=== PATIENT | male | born 1940 | race Caucasian/White ===

== ENCOUNTER 2019-12-25 10:46 | Inpatient (IN) ==
--- NOTE | 2019-12-25 11:54 | Diag Imaging Result Doc PS360 ---
EXAM: CHEST-1 VIEW 12/25/2019 HISTORY: ANEMIA TECHNIQUE: AP portable semiupright at 1136 COMMENT: There is dextrocardia as on previous studies. Considering differences in technique the appearance of the chest has not changed significantly since the previous study of 12/19/2019. IMPRESSION: Stable chest. Electronically signed by Priyank Abbott 12/25/2019 11:52 AM
--- NOTE | 2019-12-25 11:55 | EKG Report ---
Test Performed on : 12/25/2019 11:38:00 AM Test Reason : ANEMIA Blood Pressure : / mmHG Vent. Rate : 069 BPM Atrial Rate : 069 BPM P-R Int : 198 ms QRS Dur : 098 ms QT Int : 394 ms P-R-T Axes : 000 201 185 degrees QTc Int : 422 ms Normal sinus rhythm. Septal infarct , age undetermined Possible Lateral infarct , age undetermined ST & T wave abnormality, consider inferior ischemia ST & T wave abnormality, consider anterior ischemia Abnormal ECG When compared with ECG of 01-MAR-2011 16:15, Significant changes have occurred Patient states he has dextrocardia. KJ WEB SITE SPECIALIST Confirmed by Allen ADLER, Kaveh Hawthorne ([id number]) on 12/25/2019 6:03:07 PM
[2019-12-25] MEDS ORDERED: SODIUM CHLORIDE 0.9% INJ SCH (12:30)
[2019-12-25 12:42] LABS: HEMATOCRIT 24.2 % (42.0-52.0); HEMOGLOBIN 6.6 g/dL (14.0-18.0); MCH 20.2 PG (27-31); MCHC 27.3 g/dL (33-37); MCV 74.2 FL (81-99); RBC 3.26 XMIL (4.7-6.1); RDW 18.1 % (11.5-14.5); WBC 8.29 X1000 (4.8-10.8)
[2019-12-25 12:57] LABS: ALB/GLOB RATIO 1.2; ALBUMIN 3.6 g/dL (3.5-5.0); CALCIUM 8.8 mg/dL (8.8-10.2); CREATININE 1.4 mg/dL (0.7-1.2); POTASSIUM 3.7 mmol/L (3.5-5.1); TOTAL BILIRUBIN 0.25 mg/dL (0.20-1.00); TOTAL PROTEIN 6.6 g/dL (6.3-8.3)
[2019-12-25] MEDS ORDERED: DIPRIVAN 1% ONE (13:25)
--- NOTE | 2019-12-25 14:12 | ENDOSCOPY OPERATIVE NOTE ---
[facility] ENDOSCOPY OPERATIVE NOTE , EGD PROCEDURE REPORT PATIENT: Thanh Hampton ADMISSION DATE: 12/25/2019 MR#: [id number] : 1940 PROCEDURE DATE: 12/25/2019 SURGEON: Emil Tenorio MD STATUS: inpatient [facility] APPLICATION ANALYST: Zoila Sorto and Jorge Levine PREOPERATIVE DIAGNOSIS: The patient is a 79 yr old male here for an EGD due to iron deficiency anemi a and anemia secondary to chronic blood loss. PROCEDURE PERFORMED: EGD w/ control of bleeding MEDICATIONS: Per Anesthesia TOPICAL ANESTHETIC: none CONSENT: The patient understands the risks and benefits of the procedure and understands that these r isks include, but are not limited to: sedation, allergic reaction, infection, perforation and/or bleeding. Alternative means of evaluation and treatment include, among others: physical exam, x-rays, and/or surgical intervention. The patient elects to proceed with this endoscopic procedure. HISORY AND PHYSICAL: 12/25/2019 DESCRIPTION OF PROCEDURE: During intra-op preparation period all mechanical and medical equipment was checked for proper function. Hand hygiene and appropriate measures for infection prevention was taken. After the risks, benefits and alternatives of the procedure were thoroughly explained, Informed consent was verified, confirmed and timeout was successfully executed by the treatment team. The patient was anesthetized with topical anesthesia and the Pentax [id number] endoscope was introduced through the mouth and advanced to the second portion of the duodenu m. Retroflexion was performed in the stomach and revealed no abnormalities. The gastroscope was then slowly withdraw n and removed. ESOPHAGUS: Mild reflux esophagitis was found 40 cm from the incisors and at the gastroesophageal junc tion. STOMACH: Moderate acute gastritis (inflammation) was found in the gastric body. The stomach otherwi se appeared normal. DUODENUM: Multiple ranging between 5-9mm in size non-bleeding, round and deep ulcers with surrounding edema and a visible vessel were found in the duodenal bulb. Bipolar (BICAP) cautery with a 7Fr probe was applied to the sites for 10 seconds using 15 martin power. Light pressure was applied to the cautery site with good treatment effect. SPECIMENS REMOVED: No ADVERSE EVENTS: There were no complications. POSTOPERATIVE DIAGNOSIS: 1. Reflux esophagitis 40 cm from the incisors and at the gastroesophage al junction 2. Acute gastritis (inflammation) was found in the gastric body 3. The stomach otherwise appeared normal 4. Multiple ranging between 5-9mm in size ulcers were found in the duodenal bulb; Bipolar (BICAP) ca utery with a 7Fr probe was applied to the sites for 10 secs; with good treatment effect RECOMMENDATIONS: 1. Resume pre-procedure medications 2. Follow up with referring physician 3. Follow up with GI Doctor in 2 months 4. Return to floor when standard parameters are met REPEAT EXAM: Emil Tenorio MD eSigned: Emil Tenorio MD 12/25/2019 2:12 PM cc: Macario Thapa MD PATIENT NAME: Thanh Hampton MR#: [id number]
--- NOTE | 2019-12-25 14:54 | GASTROENTEROLOGY CONSULTATION ---
DATE: 12/25/2019 REASON FOR CONSULTATION: Anemia. HISTORY OF PRESENT ILLNESS: This is an 79-year-old, male, patient states he had went to the doctor with his fiancee last week to see Dr. Thapa. Dr. Thapa had noticed the patient was unsteady and noted him to be pale. He did workup and patient states he had findings of low blood level and was recommended to come in for direct admission for further evaluation. Information is obtained from the patient and his fiancee. Patient has denied any visible blood in the stool or black stools. No reported chest pain or shortness of breath. No reported abdominal pain. He does report having a colonoscopy in the past but is not sure when that was. He does not remember having an EGD. PAST MEDICAL HISTORY: Hypertension, history of cardiac arrhythmia, GERD. PAST SURGICAL HISTORY: None reported except for colonoscopy, unknown date. ALLERGIES: Penicillin. HOME MEDICATIONS: None listed. SOCIAL HISTORY: Denies tobacco use. The patient still works. 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 He has a fiancee at the bedside. His 1st . REVIEW OF SYSTEMS: Per history of present illness. PHYSICAL EXAMINATION: Vital Signs: Temperature 97.8 degrees, pulse 67, respirations 16, blood pressure 125/47. General: The patient is awake and alert, in no acute distress. HEENT: Normocephalic. Atraumatic. Pupils equal, round, reactive to light. Sclerae nonicteric. Skin: Slightly pale in color. Respiratory: Lung sounds clear bilaterally. Cardiovascular: Regular rate and rhythm. Abdomen: Soft, nontender. Positive bowel sounds. Neurologic: Cranial nerves 2-12 grossly intact. Patient is awake, alert, oriented to person, place, and time. Extremities: No lower extremity edema noted. DIAGNOSTIC RESULTS: No laboratory results in chart yet. IMAGING: Chest x-ray showed stable chest. ASSESSMENT AN: 1. Anemia. 2. History of gastroesophageal reflux disease. 3. Last colonoscopy unknown. 4. Hypertension. 5. Laboratory results pending. Patient has type and screen ordered. PLAN: We will plan for EGD when schedule allows. I have discussed EGD procedure along with the benefits and risks with the patient. He wishes to proceed. PPI has been ordered. Further plans will be made as needed. I have discussed this case with Dr. Tenorio. Thank you for this consultation. Dictated by WILLIS Avina for Emil Tenorio MD cc: WILLIS Kong MD Amit V. Vora, MD
[2019-12-25] MEDS ORDERED: NS 500 ML ONE (15:08)
[2019-12-25] MEDS ORDERED: TRANXENE PO SCH (21:00)
[2019-12-25] MEDS: PROTONIX IV SCH (21:24)
[2019-12-25] MEDS: VALIUM PO SCH (21:24)
[2019-12-25] MEDS: LOPRESSOR PO SCH (21:24)
[2019-12-26 07:17] LABS: HEMATOCRIT 32.1 % (42.0-52.0); HEMOGLOBIN 9.1 g/dL (14.0-18.0); MCH 21.9 PG (27-31); MCHC 28.3 g/dL (33-37); MCV 77.2 FL (81-99); MPV 10.1 FL (7.4-10.4); RBC 4.16 XMIL (4.7-6.1); RDW 19.2 % (11.5-14.5); WBC 8.5 X1000 (4.8-10.8)
[2019-12-26] MEDS: LOPRESSOR PO SCH (08:13)
[2019-12-26] MEDS ORDERED: DULCOLAX PR ONE (08:54)
--- NOTE | 2019-12-26 09:04 | PROGRESS NOTE ---
DATE: 12/26/2019 SUBJECTIVE: Mr. Hampton received 2 units of packed RBCs transfusion. He feels stronger. His hemoglobin has gone up from 6.6 to 9.1 this morning. I am going to repeat the CBC in the morning again. He has dehydration. BUN is 22, creatinine 1.4. Will repeat the values in the morning. Yesterday evening he was seen by Dr. Tenorio and he did EGD which revealed multiple ulcers in his stomach. He tried to stop the bleeding. There was minimal bleeding. At present, he is feeling better. We will repeat the values in the morning and then decide about further discharge plans. cc: Macario Thapa MD
--- NOTE | 2019-12-26 09:22 | HISTORY AND PHYSICAL ---
HISTORY OF PRESENT ILLNESS: Mr. Hampton is an 79-year-old white gentleman who comes to the office with severe weakness, history of occasional falls and unsteadiness. He denied having history of any abdominal pain, diarrhea, constipation, hematemesis, or melena. He is a known case of hypertension, chronic anxiety, has been on Lopressor and Tranxene, and has been very noncompliant about his medications. He still works as a big local company flatbed truck driver, and lives by himself and really does not take proper care of himself, does not take medications on a regular basis. PAST MEDICAL HISTORY: Past history of fractures in both legs that set up arthritis in both knees. PAST SURGICAL HISTORY: No history of any major surgery. SOCIAL HISTORY: He is a nonsmoker. Does not drink. REVIEW OF SYSTEMS: General: He is weak. Cardiopulmonary: Denies having any chest pain, shortness of breath. GI: Negative for hematemesis or melena. LABORATORY DATA: He was found to have severe anemia in the office. Hemoglobin was 7 grams, and so I decided to put him in the hospital. Other details are noncontributory. PHYSICAL EXAMINATION: GENERAL: The patient is alert and oriented. He is anemic. VITAL SIGNS: Temperature normal, pulse 63 per minute, respiratory rate 18 per minute, blood pressure 130/68. HEENT: Head normocephalic. PERRLA. Fundus examination normal. ENT examination unremarkable. There is pallor of skin and mucous membranes. NECK: Supple. JVP normal. There is no evidence of lymphadenopathy, thyroid enlargement. EXTREMITIES: No pedal edema, calf tenderness, cyanosis, or clubbing. Pedal pulses well felt. BREASTS: Normal. CHEST: Normal on inspection. LUNGS: Clear on auscultation. HEART: PMI in the normal position. Heart sounds are normal. No murmur, gallop, or rub noted. ABDOMEN: Nondistended. Hernial orifices normal. No guarding, rigidity, free fluid, masses, or organomegaly. Bowel sounds normal. RECTAL: Deferred. FITNESS MANAGEMENT DIRECTOR: Higher functions normal. Cranial nerves normal. Motor and sensory system examination unremarkable. Deep tendon reflexes normal. Plantars downgoing. SPINE: Normal for age. No cerebellar signs or signs of meningeal irritation. LOCOMOTOR/SKIN: Unremarkable. CLINICAL IMPRESSION: 1. Severe anemia. The patient is symptomatic with generalized weakness. 2. History of dizziness and almost falls. He is unsteady when he walks. He has arthritis in both knees. Plan to transfuse him blood and do the anemia workup and get a Gastroenterology consult. cc: Macario Thapa MD
[2019-12-26] MEDS: D5 1/2 NS + KCL 10 MEQ 1,000 ML IV SCH (11:05)
--- NOTE | 2019-12-26 14:08 | GASTROENTEROLOGY PROGRESS NOTE ---
DATE: 12/26/2019 SUBJECTIVE: The patient was awake and alert. He was in no acute distress. He tolerated a liquid diet today. He had an EGD on 12/25/2019. Findings show mild reflux esophagitis, moderate acute gastritis, and multiple ulcers with a visible vessel treated in the duodenal bulb. The patient is receiving Protonix. OBJECTIVE: Vital Signs: Temperature 98.1 degrees, pulse 68, respirations 14, blood pressure 128/66. General: The patient is awake and alert, in no acute distress. Abdomen: Soft, nontender. LABORATORY DATA: Hematology: WBC 8.50, hemoglobin 9.1, hematocrit 32.1, MCV 77.2. ASSESSMENT AND PLAN: 1. Anemia, improved after packed red blood cells. 2. Esophagogastroduodenoscopy showing esophagitis, gastritis, and duodenal ulcers with a visible vessel, treated. We will continue to monitor his hemoglobin and hematocrit. We will advance his diet to a gastrointestinal soft diet. Continue proton pump inhibitor. Further plans will be made according to his progress. I have discussed this case with Dr. Tenorio. Dictated by WILLIS Avina for Emil Tenorio MD cc: WILLIS Kong MD Amit V. Vora, MD
[2019-12-26] MEDS: PROTONIX IV SCH (20:44)
[2019-12-26] MEDS: VALIUM PO SCH (20:47)
[2019-12-27] MEDS: LOPRESSOR PO SCH ×2 (05:21→09:43)
[2019-12-27] MEDS: PROTONIX IV SCH (05:22)
[2019-12-27 07:04] LABS: BASO# 0.02 X1000 (0.0-0.2); BASO% 0.2 % (0.0-0.8); EOS# 0.19 X1000 (0.0-0.7); EOS% 2.3 % (0.0-10.0); HEMATOCRIT 31.5 % (42.0-52.0); HEMOGLOBIN 9.1 g/dL (14.0-18.0); LYMPH# 0.81 X1000 (1.2-3.4); LYMPH% 9.7 % (20.5-51.1); MCH 22.4 PG (27-31); MCHC 28.9 g/dL (33-37); MCV 77.4 FL (81-99); MONO# 0.74 X1000 (0.11-0.59); MONO% 8.9 % (1.7-9.3); MPV 10.4 FL (7.4-10.4); NEUT% 78.9 % (42.2-75.2); PLT 329 X1000 (130-400); RBC 4.07 XMIL (4.7-6.1); RDW 19.8 % (11.5-14.5); WBC 8.36 X1000 (4.8-10.8)
[2019-12-27 07:31] LABS: CALCIUM 8.8 mg/dL (8.8-10.2); CREATININE 1.2 mg/dL (0.7-1.2); POTASSIUM 3.7 mmol/L (3.5-5.1)
[2019-12-27 07:37] VITALS: BP 133/71
--- NOTE | 2019-12-27 07:58 | EKG Report ---
Test Performed on : 12/27/2019 07:05:20 AM Test Reason : CP Blood Pressure : / mmHG Vent. Rate : 074 BPM Atrial Rate : 074 BPM P-R Int : 174 ms QRS Dur : 094 ms QT Int : 386 ms P-R-T Axes : 110 199 180 degrees QTc Int : 428 ms Suspect arm lead reversal, interpretation assumes no reversal Normal sinus rhythm. Low voltage QRS Possible Anterolateral infarct (cited on or before 25-DEC-2019) T wave abnormality, consider inferior ischemia Abnormal ECG When compared with ECG of 25-DEC-2019 11:38, Serial changes of Anterior infarct present Confirmed by Allen ADLER, Kaveh Hawthorne ([id number]) on 12/28/2019 7:30:02 AM
[2019-12-27] MEDS: D5 1/2 NS + KCL 10 MEQ 1,000 ML IV SCH (10:06)
--- NOTE | 2019-12-28 10:28 | DISCHARGE SUMMARY ---
ADMISSION DATE: 12/25/2019 DISCHARGE DATE: 12/27/2019 HOSPITAL COURSE: Mr. Hampton was admitted with symptomatic anemia. Hemoglobin was down to 6.6. After 2 units of packed RBC transfusion, it came back up at 9.1 and stayed at 9.1. White count was normal. Platelet count was also normal. Chemistry revealed potassium 3.7. BUN initially was 22, creatinine was 1.4; it came down to 11 and 1.2. PSA was elevated; it was 9.2 at one point. His chest x-ray was unremarkable. Electrocardiogram revealed normal sinus rhythm, possible anterolateral infarct with ischemic T-wave changes. He had a GI consultation. He was seen by Dr. Tenorio, who did endoscopy procedure and found that he had acute gastritis. There were multiple 5 to 9 mm size ulcers in the duodenal bulb, and some of the areas were cauterized. He continued to improve. He was given IV Protonix, which we continued. FINAL DIAGNOSIS: Severe anemia secondary to gastrointestinal bleeding, multiple ulcers, elevated prostate-specific antigen. We will follow him in about 7 days. cc: Macario Thapa MD
--- NOTE | 2020-01-03 11:36 | DISCHARGE SUMMARY ---
ADMISSION DATE: 12/25/2019 DISCHARGE DATE: 12/27/2019 ADDENDUM REPORT DISCHARGE SUMMARY: Mr. Hampton, who is an 79-year-old white gentleman was admitted with severe anemia. He had heme-positive stools and he was found to have multiple ulcers in the duodenum. I personally feel like he had chronic blood loss anemia from a duodenal ulcer with hemorrhage. cc: Macario Thapa MD
== END 2019-12-27 10:55 | disposition home or self-care (01) | DRG 379 ==
LOC: DIRADM 10:46 → 4N 10:56
PROVIDERS: ADMIT Internal Medicine; ATTEND Internal Medicine
PROC: EN.HEAT (2019-12-25 13:50)